=== PATIENT | female | born 1950 | race Caucasian/White ===

== ENCOUNTER 2017-06-16 19:17 | Inpatient (IN) | payer MEDICARE ==
[2017-06-16] MEDS ORDERED: Azithromycin 500 MG VIAL ONE (19:51)
[2017-06-16] MEDS ORDERED: methylPREDNISolone Sod Succ/PF 125 MG/2 ML VIAL ONE (19:51)
--- NOTE | 2017-06-16 20:09 | RAD ---
AP CHEST: Indication: Shortness of breath. FINDINGS: There are patchy air opacities within the left lower lobe. The right lung is clear. COPD change is pr esent. There are surgical clips seen within the left aspect of the mediastinum. No acute osseous abno rmality. IMPRESSION: 1. Airspace opacity within the left lower lobe. Recommend correlation for possible pneumonia. Two vie w chest radiograph may be helpful for further characterization. 2. COPD change. POS: ALEX
[2017-06-16 20:10] LABS: Hemoglobin 12.1 g/dL (12.0-16.0); Mean Corpuscular HGB CONC 31.3 g/dL (32.0-36.0); Mean Corpuscular Volume 79.9 fl (81.0-99.0); Mean Platelet Volume 7.9 fL (7.4-10.4); Platelet Count 256 thou/uL (130-400); RBC Distribution Width 14.9 % (11.5-14.5); Red Blood Cell (RBC) Count 4.83 mill/uL (4.20-5.40); White Blood Cell (WBC) Count 21.9 thou/uL (4.8-10.8)
[2017-06-16] MEDS ORDERED: Cefepime 1 GM, Admixture Fee 1 EACH in Sodium Chloride 0.9% 10 ML SLOW IVP SCH (20:15)
[2017-06-16 20:27] LABS: ALT (SGPT) 31 U/L (8-55); AST (SGOT) 30 U/L (5-34); Albumin 3.8 g/dL (3.4-4.8); Alkaline Phosphatase 115 U/L (40-150); Anion Gap 11 mmol/L (10-20); BUN (Urea Nitrogen) 18 mg/dL (9.8-20.1); Bilirubin, Total 0.5 mg/dL (0.2-1.2); CK (CPK) 433 U/L (29-168); Calc. Creatinine Clearance 0 mL/min (70-130); Calcium 9.4 mg/dL (7.8-10.44); Carbon Dioxide 34 mmol/L (23-31); Chloride 95 mmol/L (98-107); Estimated GFR-MDRD 77; Globulin 2.9 g/dL (2.4-3.5); Glucose 110 mg/dL (80-115); Magnesium 1.6 mg/dL (1.6-2.6); Potassium 4.2 mmol/L (3.5-5.1); Protein, Total 6.7 g/dL (6.0-8.3); Sodium 136 mmol/L (136-145)
[2017-06-16 20:29] LABS: Anisocytosis SLIGHT = 6-15 cells (100X) (0-5/hpf); Band 1 % (5-11); Hypochromia SLIGHT = 6-15 cells (100X) (0-5/hpf); Lymphocytes 4 % (21-51); MDiff Complete? YES; Monocytes 5 % (0-10); Neutrophil 88 % (42-75); PLT Morphology Comment Appears Adequate; Reactive Lymphocytes 2 % (0-10)
[2017-06-16 20:31] LABS: Troponin I 0.028 ng/mL (< 0.028)
[2017-06-16 20:35] LABS: CKMB 16.2 ng/mL (0-6.6)
[2017-06-16 20:35] LABS: Bilirubin Small (Negative); Blood, Urine Negative (Negative); Clarity CLEAR (Clear); Glucose, Urine (Dipstick) Negative (Negative); Leukocyte Negative (Negative); Nitrite Negative (Negative); Protein, Urine (Dipstick) 300 mg/dL (Neg-Trace); Specific Gravity, Urine 1.035 (1.002-1.036); pH, Urine 5.5 (5.0-9.0)
[2017-06-16 20:37] LABS: Bacteria/HPF None Seen HPF (None Seen); Hyaline Casts/LPF 7-10 HYALINE CAST LPF (0-3 Hyaline); Pathc Cast-AUWi Flag 2.03 (0-2.49); WBC/HPF 0-3 HPF (0-3)
[2017-06-16 20:47] LABS: RBC/HPF None Seen HPF (0-3); Renal Epithelial None Seen HPF (0-3); Transitional Epithelial NONE SEEN HPF (0-3)
[2017-06-16] MEDS ORDERED: Senokot 8.6 MG TAB PO PRN ×2 (22:40)
[2017-06-16] MEDS ORDERED: cloNIDine 0.1 MG TAB PO PRN (22:40)
[2017-06-16] MEDS ORDERED: Guaifenesin DM 100-10/5 ML UDCUP PO PRN (22:40)
[2017-06-16] MEDS ORDERED: Benzonatate 100 MG CAP PO PRN (22:40)
[2017-06-16] MEDS ORDERED: Ondansetron HCl/PF 4 MG/2 ML Vial IVP PRN ×2 (22:40)
[2017-06-16] MEDS ORDERED: Nitroglycerin 0.4 MG TAB (25 Tab Bottle) SL PRN (22:40)
[2017-06-16] MEDS ORDERED: Calcium Carbonate 500 MG ChewTAB PO PRN (22:40)
[2017-06-16] MEDS ORDERED: Acetaminophen 325 MG TAB PO PRN (22:40)
[2017-06-16] MEDS ORDERED: Mag-Al 1200 mg/1200 mg/30 ML UDCUP PO PRN (22:40)
[2017-06-16] MEDS ORDERED: hydrALAZINE 20 MG/ML VIAL SLOW IVP PRN (22:40)
[2017-06-16] MEDS ORDERED: Loratadine 10 MG TAB PO PRN (22:40)
[2017-06-16] MEDS ORDERED: Bisacodyl 5 MG TAB PO PRN ×2 (22:40)
[2017-06-16] MEDS ORDERED: traMADol HCl 50 MG TAB PO PRN (22:40)
[2017-06-16] MEDS ORDERED: Mometasone/Formoterol 120 PUFF INHALER INH SCH (23:15)
[2017-06-16 23:38] LABS: Troponin I 0.029 ng/mL (< 0.028)
--- NOTE | 2017-06-17 00:37 | HP ---
DATE OF ADMISSION: 06/16/2017 CHIEF COMPLAINT: Worsening shortness of breath, generalized weakness, cough, and malaise. HISTORY OF PRESENT ILLNESS: Ms. Madera is a pleasant 67-year-old female who is visiting her family from outside for [facility], who presented to the emergency room with the above-mentioned complai nts. History is mainly obtained by the patient herself who is a rather poor historian. She is kind of sleepy at this time and also not answering the questions beyond yes or no. Family is at bedside, but they do not have the full medical history for her either. According to Ms. Madera, she has been feeling fine when she drove here 2 days ago from [facility]. She has history of lung cancer and has finished her chemotherapy and radiation last year in August. She has her left upper lobe removed for this. She does report that she continues to follow up with O ncology in her town and has been getting regular checkups. She started to feel bad yesterday afternoon. Her family noticed that she was fatigued and tired and was sleeping most of the time. She has been having worsening cough. She is a lifetime smoker and co ntinues to smoke, but this cough is different from a chronic cough. She denies any fever or chills, but has poor appetite in general and worse so in the last day or so. She denies any chest pain, orth opnea, or PND. She denies any vomiting, but has been feeling nauseated. She denies any diarrhea. S he denies any dysuria, frequency, urgency, hematuria. She denies any other recent illnesses or sick contacts. Upon presentation to the emergency room, her oxygen saturation was 100% on 2 liters. Her initial wor kup included basic labs, which were rather unremarkable except for elevated creatine kinase at 433 wi th resultant elevation of CK-MB to 16.2. Troponin is normal at 0.028. Her BNP slightly elevated at 385. Her chest x-ray suggested left lower-lobe pneumonia. She has received IV antibiotics, namely a zithromycin, Rocephin, as well as cefepime in the emergency room along with Solu-Medrol. She is feel ing better now and is hemodynamically stable. She is currently being admitted to medical floor for p neumonia, possible sepsis, and COPD exacerbation. She does have elevated white blood cell count at 2 1,000 with left shift and bandemia. PAST MEDICAL HISTORY: The patient is not able to corroborate most of the history and I have gathered as from the ER notes. Atrial fibrillation, CHF, asthma, hypothyroidism, hypertension, lung cancer, status post left upper lobe resection and chemotherapy and radiation, COPD, and tobacco abuse. PAST SURGICAL HISTORY: 1. Left lung lobectomy. 2. History of left breast surgery. 3. Cardiac stenting, even though the patient denied history of heart disease. PSYCHIATRIC HISTORY: History of depression. SOCIAL HISTORY: She lives by herself and reports that she is independent with her ADLs and her IADLs . She drove herself to be with her family in [place] area. ALLERGIES: No known medication allergies. FAMILY HISTORY: She denies any family history of coronary artery disease, stroke, or cancers. CURRENT MEDICATIONS: 1. Advair. 2. Incruse Ellipta. 3. ProAir. 4. Citalopram. 5. Levothyroxine. 6. Metoprolol succinate. 7. Xarelto. 8. Albuterol. Dosages are not available at this time. REVIEW OF SYSTEMS: The following complete review of systems was negative, except for those mentioned in the history and physical: Constitutional: Weight loss or gain, ability to conduct usual activit ies. Skin: Rash, itching. Eyes: Double vision, pain. ENT/Mouth: Nose bleeding, neck stiffness, pain, tenderness. Cardiovascular: Palpitations, dyspnea on exertion, orthopnea. Respiratory: Shor tness of breath, wheezing, cough, hemoptysis, fever, or night sweats. Gastrointestinal: Poor appeti te, abdominal pain, heartburn, nausea, vomiting, constipation, or diarrhea. Genitourinary: Urgency, frequency, dysuria, nocturia. Musculoskeletal: Pain, swelling. Neurologic/Psychiatric: Anxiety, depression. Allergy/Immunologic: Skin rash, bleeding tendency. LABORATORY DATA: Her CBC shows WBCs at 21.9, 88% neutrophils, and 1% bands, otherwise unremarkable. Serum chemistry showed chloride 95, bicarbonate 34, creatine kinase 433, CK-MB 16.2, troponin 0.028. BNP 385. Urinalysis shows 300 protein, otherwise unremarkable. Chest x-ray by my review as per HP I with left lower-lobe pneumonia. A 12-lead EKG by my review shows normal sinus rhythm. PHYSICAL EXAMINATION: VITAL SIGNS: Upon presentation, blood pressure 137/84, pulse of 90, respirations 20, saturating 100% on 2 liters oxygen, temperature 98.0. GENERAL: She is somnolent, but easily woken up, but falls back asleep quickly. When woken up, she i s awake, alert, oriented x3. She appears thin and cachectic, but in no acute distress. HEENT: Mucous membrane is dry. No oropharyngeal exudate or erythema. Head is normocephalic, atraum atic. Pupils are equal, reactive to light and accommodation. Extraocular movement intact. NECK: Supple without any lymphadenopathy, JVD, or bruit. CHEST: Reveals diffuse wheezing and crackles at the bases. Chest expansion symmetrical. CARDIOVASCULAR: Rare and rhythm is regular without any murmur, rubs, or gallops. ABDOMEN: Soft, nontender, nondistended with positive bowel sounds. EXTREMITIES: Free of any cyanosis, clubbing, or edema. NEUROLOGIC: Nonfocal. SKIN: Free of any rashes or bruises. I feel warm and dry to touch. PSYCHIATRIC: Normal affect. IMPRESSION AND PLAN: 1. Sepsis, most likely secondary to pneumonia. Patient will be admitted to medical floor, as she is hemodynamically stable. We will continue with IV fluids cautiously given her history of congestive heart failure with unknown baseline. Also, continue IV antibiotics namely Levaquin and cefepime give n her history of lung cancer. We will also obtain blood cultures and follow the results. Her influe nza swab was done in the emergency room and is negative. 2. Dyspnea likely secondary to acute chronic obstructive pulmonary disease exacerbation as well as p neumonia. We will start her on nebulizers scheduled and p.r.n. Add Dulera b.i.d. as well for long-a cting inhaled steroids. Also, continue IV steroids as started in the emergency room and continue sup plemental oxygen. Her symptomatic and supportive care in the form of Mucinex: Incentive spirometry and p.r.n. cough medicines etc. If her symptoms are not improved within the next 24 hours or so: We will consider consultation with Pulmonary Medicine team. 3. Left lower-lobe pneumonia as #1. Continue IV antibiotics and gentle IV fluid hydration and follo w culture results. 4. Moderate protein-calorie malnutrition. We will start her on protein supplements at this time. A lso, consult dietitian. The patient most likely will benefit from home health, where she resides. U ramón, she is not local and we will defer this back to her primary care physician to arrange f or that. 5. Chronic obstructive pulmonary disease. At this time, we are treating her for acute exacerbation. We will be treating her with Dulera, Advair, and Incruse Ellipta will be continued in the outpatien t setting. 6. History of hypertension. Restart her metoprolol succinate when the dosages are confirmed. 7. History of atrial fibrillation. The patient is currently sinus rhythm. She seems to be taking X arelto, but I do not have the correct dosages. We will start this as soon as possible and use Loveno x at the deep venous thrombosis prophylactic dose until then. 8. History of depression. Continue citalopram once the dosages are confirmed. 9. Questionable history of coronary artery disease. I do not know if this is a true diagnosis or no t. The patient does not seem to be on any medication except metoprolol for this. 10. Hypothyroidism. Continue levothyroxine once the dosages are confirmed. 11. History of lung cancer, status post left upper lobe lobectomy, chemotherapy and radiation. The patient is encouraged to continue to follow up with her Pulmonary team and Oncology team where she li ves. 12. Code status: FULL CODE. Discussed with the patient in detail and entered order in [facility]. 13. Deep venous thrombosis and gastrointestinal prophylaxis. 14. Add p.r.n. medication orders. DISPOSITION: Ms. Madera is currently being admitted to the hospital for sepsis, pneumonia, and acute COPD exacerbation. Estimated length of stay is at least 2-3 midnight. Further management will depen d upon her clinical course.
[2017-06-17 00:43] VITALS: BMI 15.7
[2017-06-17] MEDS: Sodium Chloride 0.9% 1,000 ML IV SCH ×2 (01:33→12:22)
[2017-06-17 02:33] LABS: Troponin I 0.033 ng/mL (< 0.028)
[2017-06-17 06:06] LABS: #Lymphocytes 0.6 thou/uL (1.20-3.40); #Monocytes 0.1 thou/uL (0.11-0.59); #Neutrophils 16.7 thou/uL (1.40-6.50); %Eosinophils 0.1 % (0.0-10.0); %Lymphocytes 3.5 % (21.0-51.0); %Monocytes 0.6 % (0.0-10.0); %Neutrophils 95.8 % (42.0-75.0); Hemoglobin 12.2 g/dL (12.0-16.0); Mean Corpuscular HGB CONC 30.8 g/dL (32.0-36.0); Mean Corpuscular Hemoglobin 24.4 pg (27.0-31.0); Mean Corpuscular Volume 79.5 fl (81.0-99.0); Mean Platelet Volume 8.3 fL (7.4-10.4); Platelet Count 243 thou/uL (130-400); RBC Distribution Width 15.2 % (11.5-14.5); Red Blood Cell (RBC) Count 4.97 mill/uL (4.20-5.40); White Blood Cell (WBC) Count 17.4 thou/uL (4.8-10.8)
[2017-06-17] MEDS: Mometasone/Formoterol 120 PUFF INHALER INH SCH ×2 (06:20→20:15)
[2017-06-17 06:30] LABS: Anion Gap 11 mmol/L (10-20); BUN (Urea Nitrogen) 19 mg/dL (9.8-20.1); Calc. Creatinine Clearance 52 mL/min (70-130); Calcium 9.2 mg/dL (7.8-10.44); Carbon Dioxide 35 mmol/L (23-31); Chloride 96 mmol/L (98-107); Estimated GFR-MDRD 79; Glucose 156 mg/dL (80-115); Potassium 4.5 mmol/L (3.5-5.1); Sodium 137 mmol/L (136-145)
[2017-06-17] MEDS ORDERED: Arformoterol 15 MCG/2 ML NEB NEB SCH (06:30)
[2017-06-17] MEDS: Famotidine 20 MG TAB PO SCH ×2 (08:26→20:15)
[2017-06-17] MEDS: Enoxaparin Sodium 40 MG/0.4 ML SYRINGE SC SCH (08:26)
[2017-06-17] MEDS ORDERED: Prevnar 13-Val Conj/PF 0.5 ML SYRINGE IM ONE (09:00)
[2017-06-17] MEDS: Cefepime 2 GM in Syringe 12.5 ML IVPB SCH ×2 (10:10→20:15)
--- NOTE | 2017-06-17 13:16 | PDOC.PN ---
- Subjective Encounter Start Date: 06/17/17 Encounter Start Time: 08:00 Pt seen for followup re: pneumonia. Denies chest pain. Has cough, small amount of sputum. No fevers or chills. - Objective Resuscitation Status: Resuscitation Status FULL:Full Resuscitation MAR Reviewed: Yes Vital Signs & Weight: Vital Signs (12 hours) Temp Pulse Resp BP Pulse Ox 06/17/17 11:36 98 14 98 06/17/17 08:00 97.5 F L 99 20 146/82 H 97 06/17/17 06:20 92 14 97 06/17/17 06:18 92 14 97 06/17/17 04:15 98.2 F 86 22 H 142/76 H 98 Weight Admit Weight 97 lb 14.164 oz Weight 97 lb 14.164 oz I&O: 06/16/17 06/17/17 06/18/17 06:59 06:59 06:59 Intake Total 480 Balance 480 Result Diagrams: 06/17/17 01:49 06/17/17 01:49 Phys Exam - Physical Examination Constitutional: NAD HEENT: PERRLA, moist MMs, sclera anicteric, oral pharynx no lesions Neck: no nodes, no JVD, supple, full ROM Respiratory: no rales, no rhonchi, wheezing present Cardiovascular: RRR, no rub Gastrointestinal: soft, non-tender, no distention, positive bowel sounds Musculoskeletal: no edema, pulses present Neurological: moves all 4 limbs Psychiatric: normal affect Skin: no rash, normal turgor, cap refill <2 seconds Dx/Plan (1) Pneumonia Code(s): J18.9 - PNEUMONIA, UNSPECIFIED ORGANISM Status: Acute Comment: continue antibiotics as below (2) COPD exacerbation Code(s): J44.1 - CHRONIC OBSTRUCTIVE PULMONARY DISEASE W (ACUTE) EXACERBATION Status: Acute Comment: continue oxygen, steroids and bronchodilators (3) CHF (congestive heart failure) Code(s): I50.9 - HEART FAILURE, UNSPECIFIED Status: Acute Qualifiers: Heart failure chronicity: acute on chronic Comment: administer IV furosemide; check 2D echo. (4) Elevated troponin I level Code(s): R74.8 - ABNORMAL LEVELS OF OTHER SERUM ENZYMES Status: Acute Comment: Recheck trop level. No chest pain, ? trop elevation due to COPD exacerbation/pneumonia. Check 2D echo to r/o regional wall motion abnormalities. (5) Hypothyroidism Code(s): E03.9 - HYPOTHYROIDISM, UNSPECIFIED Status: Chronic Comment: continue synthroid (6) HTN (hypertension) Code(s): I10 - ESSENTIAL (PRIMARY) HYPERTENSION Status: Chronic Comment: Monitor vital signs, titrate antihypertensives as needed (7) Moderate protein-calorie malnutrition Code(s): E44.0 - MODERATE PROTEIN-CALORIE MALNUTRITION Status: Chronic (8) Tobacco abuse Code(s): Z72.0 - TOBACCO USE Status: Chronic Comment: Counseled re: tobacco cessation, start nicotine replacement therapy - Plan plan discussed w/ family * . Discussed with son over phone, updated him. Review of Systems - Review of Systems Constitutional: other. negative: fever, chills, sweats, weakness, malaise Respiratory: Cough, Sputum, Wheezing. negative: Dry, Shortness of Breath, Hemoptysis, SOB with Excertion, Pleuritic Pain Cardiovascular: negative: chest pain, palpitations, orthopnea, paroxysmal nocturnal dyspnea, edema, light headedness Gastrointestinal: negative: Nausea, Vomiting, Abdominal Pain, Diarrhea, Constipation, Melena, Hematochezia Genitourinary: Other. negative: Dysuria, Frequency, Incontinence, Hematuria, Retention - Medications/Allergies Allergies/Adverse Reactions: Allergies Allergy/AdvReac Type Severity Reaction Status Date / Time No Known Allergies Allergy Unverified 06/16/17 20:00 Medications: Current Medications Acetaminophen (Tylenol) 650 mg PO Q4H PRN PRN Reason: Headache/Fever or Pain Al Hydroxide/Mg Hydroxide (Maalox) 30 ml PO Q6H PRN PRN Reason: Heartburn or Indigestion Albuterol/Ipratropium (Duoneb) 3 ml NEB Q4H PRN PRN Reason: SOB &/or Wheezing Albuterol/Ipratropium (Duoneb) 3 ml NEB [id number] PATRICK Last Admin: 06/17/17 11:36 Dose: 3 ml Benzonatate (Tessalon) 100 mg PO Q4H PRN PRN Reason: Cough Bisacodyl (Dulcolax) 10 mg PO DAILYPRN PRN PRN Reason: Constipation Calcium Carbonate (Tums) 1,000 mg PO Q4H PRN PRN Reason: Heartburn or Indigestion Clonidine (Catapres) 0.1 mg PO Q4H PRN PRN Reason: Systolic BP > 160 Enoxaparin Sodium (Lovenox) 40 mg SC 0900 [facility] Last Admin: 06/17/17 08:26 Dose: 40 mg Famotidine (Pepcid) 20 mg PO BID [facility] Last Admin: 06/17/17 08:26 Dose: 20 mg Guaifenesin/Dextromethorphan (Robitussin Dm) 15 ml PO Q4H PRN PRN Reason: Cough Hydralazine HCl (Apresoline) 10 mg SLOW IVP Q4H PRN PRN Reason: Systolic BP > 170 Cefepime HCl 2 gm/ Syringe 12.5 mls @ 150 mls/hr IVPB Q12HR [facility] Last Admin: 06/17/17 10:10 Dose: 12.5 mls Levofloxacin 750 mg/ Device 150 mls @ 100 mls/hr IVPB 2359 [facility] Last Admin: 06/17/17 01:31 Dose: 150 mls Sodium Chloride (Normal Saline 0.9%) 1,000 mls @ 75 mls/hr IV [id number] [facility] Last Admin: 06/17/17 12:22 Dose: 1,000 mls Loratadine (Claritin) 10 mg PO DAILYPRN PRN PRN Reason: Sinus Symptoms Lorazepam (Ativan) 1 mg PO Q4H PRN PRN Reason: Anxiety/Agitation Methylprednisolone Sodium Succinate (Solu-Medrol) 40 mg IVP Q6HR [facility] Last Admin: 06/17/17 11:28 Dose: 40 mg Mometasone Furoate/Formoterol Fumar (Dulera 200 Mcg/5 Mcg Inhaler) 2 puff INH BID-RT [facility] Last Admin: 06/17/17 06:20 Dose: 2 puff Nitroglycerin (Nitrostat) 0.4 mg SL Q5MIN PRN PRN Reason: Chest Pain Ondansetron HCl (Zofran) 4 mg IVP Q6H PRN PRN Reason: Nausea/Vomiting Senna (Senokot) 2 tab PO HSPRN PRN PRN Reason: Constipation Temazepam (Restoril) 15 mg PO HSPRN PRN PRN Reason: Insomnia Tramadol HCl (Ultram) 50 mg PO Q4H PRN PRN Reason: Moderate Pain (4-6)
[2017-06-17] MEDS ORDERED: Furosemide 40 MG/4 ML VIAL SLOW IVP SCH (13:45)
[2017-06-17 14:49] LABS: Troponin I 0.019 ng/mL (< 0.028)
[2017-06-17 14:51] LABS: CKMB 13.8 ng/mL (0-6.6)
[2017-06-17] MEDS: Nicotine 21 MG PATCH TD SCH (15:39)
[2017-06-17 19:00] LABS: Troponin I 0.021 ng/mL (< 0.028)
[2017-06-17 19:03] LABS: CKMB 19.3 ng/mL (0-6.6)
[2017-06-18] MEDS: Temazepam 15 MG CAP PO PRN (00:40)
[2017-06-18] MEDS: Mometasone/Formoterol 120 PUFF INHALER INH SCH ×2 (06:30→20:01)
[2017-06-18] MEDS: Enoxaparin Sodium 40 MG/0.4 ML SYRINGE SC SCH (07:49)
[2017-06-18] MEDS: Cefepime 2 GM in Syringe 12.5 ML IVPB SCH ×2 (08:15→20:04)
[2017-06-18] MEDS: Famotidine 20 MG TAB PO SCH ×2 (08:17→20:00)
[2017-06-18] MEDS ORDERED: Nicotine 21 MG PATCH TD SCH (09:00)
[2017-06-18 09:58] LABS: #Lymphocytes 0.3 thou/uL (1.20-3.40); #Monocytes 0.3 thou/uL (0.11-0.59); #Neutrophils 16.6 thou/uL (1.40-6.50); %Lymphocytes 1.8 % (21.0-51.0); %Monocytes 1.6 % (0.0-10.0); %Neutrophils 96.6 % (42.0-75.0); Mean Corpuscular HGB CONC 30.2 g/dL (32.0-36.0); Mean Corpuscular Hemoglobin 24.8 pg (27.0-31.0); Mean Corpuscular Volume 81.9 fl (81.0-99.0); Mean Platelet Volume 8.3 fL (7.4-10.4); Platelet Count 244 thou/uL (130-400); RBC Distribution Width 15.3 % (11.5-14.5); Red Blood Cell (RBC) Count 4.86 mill/uL (4.20-5.40); White Blood Cell (WBC) Count 17.2 thou/uL (4.8-10.8)
[2017-06-18 10:13] LABS: Anion Gap 12 mmol/L (10-20); BUN (Urea Nitrogen) 35 mg/dL (9.8-20.1); Calc. Creatinine Clearance 42 mL/min (70-130); Calcium 9.5 mg/dL (7.8-10.44); Carbon Dioxide 31 mmol/L (23-31); Chloride 95 mmol/L (98-107); Estimated GFR-MDRD 61; Glucose 165 mg/dL (80-115); Potassium 4.1 mmol/L (3.5-5.1); Sodium 134 mmol/L (136-145)
[2017-06-18] MEDS: Lorazepam 1 MG TAB PO PRN ×2 (14:03→20:00)
[2017-06-18] MEDS: Nicotine 21 MG PATCH TD SCH (14:04)
--- NOTE | 2017-06-18 14:07 | PDOC.PN ---
- Subjective Encounter Start Date: 06/18/17 Encounter Start Time: 09:00 Pt seen for followup re: pneumonia. Denies chest pain, feels better today. Cough+, sputum+. No fevers or chills. - Objective Resuscitation Status: Resuscitation Status FULL:Full Resuscitation MAR Reviewed: Yes Vital Signs & Weight: Vital Signs (12 hours) Temp Pulse Resp BP Pulse Ox 06/18/17 13:27 87 16 97 06/18/17 08:00 98.2 F 104 H 14 121/74 95 06/18/17 06:30 99 06/18/17 06:29 110 H 15 99 06/18/17 04:00 97.5 F L 102 H 20 118/65 95 Weight Admit Weight 97 lb 14.164 oz Weight 97 lb 14.164 oz I&O: 06/17/17 06/18/17 06/19/17 06:59 06:59 06:59 Intake Total 3750 Balance 3750 Result Diagrams: 06/18/17 09:46 06/18/17 09:46 Phys Exam - Physical Examination Constitutional: NAD HEENT: PERRLA, moist MMs, sclera anicteric, oral pharynx no lesions Neck: no nodes, no JVD, supple, full ROM Respiratory: no wheezing, no rales, no rhonchi, clear to auscultation bilateral Cardiovascular: RRR, no rub Gastrointestinal: soft, non-tender, positive bowel sounds Neurological: moves all 4 limbs Psychiatric: normal affect, A&O x 3 Skin: no rash Dx/Plan (1) Pneumonia Code(s): J18.9 - PNEUMONIA, UNSPECIFIED ORGANISM Status: Acute Comment: continue cefepime and vancomycin. Try to wean pt off of supplemental oxygen. Pt still has leucocytosis (? due to steroids), although she is better today. Transition to oral antibiotics once oxygenation improves. (2) COPD exacerbation Code(s): J44.1 - CHRONIC OBSTRUCTIVE PULMONARY DISEASE W (ACUTE) EXACERBATION Status: Acute Comment: Receiving oxygen PRN, steroids and bronchodilators (3) CHF (congestive heart failure) Code(s): I50.9 - HEART FAILURE, UNSPECIFIED Status: Acute Qualifiers: Heart failure chronicity: acute on chronic Comment: continue IV furosemide; 2D echo report pending. (4) Hypothyroidism Code(s): E03.9 - HYPOTHYROIDISM, UNSPECIFIED Status: Chronic Comment: continue synthroid (5) HTN (hypertension) Code(s): I10 - ESSENTIAL (PRIMARY) HYPERTENSION Status: Chronic Comment: titrate antihypertensives as needed (6) Moderate protein-calorie malnutrition Code(s): E44.0 - MODERATE PROTEIN-CALORIE MALNUTRITION Status: Chronic Comment: appreciate dietitian input (7) Tobacco abuse Code(s): Z72.0 - TOBACCO USE Status: Chronic Comment: on nicotine replacement therapy (8) Elevated troponin I level Code(s): R74.8 - ABNORMAL LEVELS OF OTHER SERUM ENZYMES Status: Resolved Comment: Troponin level normalized, pt never had chest pain. - Plan * . Awaiting records from PCP Review of Systems - Review of Systems Constitutional: negative: fever, chills, sweats, weakness, malaise Respiratory: Cough, SOB with Excertion, Sputum. negative: Shortness of Breath, Hemoptysis, Pleuritic Pain, Wheezing Cardiovascular: negative: chest pain, palpitations, orthopnea, paroxysmal nocturnal dyspnea, edema, light headedness Gastrointestinal: negative: Nausea, Vomiting, Abdominal Pain, Diarrhea, Constipation, Melena, Hematochezia Genitourinary: negative: Dysuria, Frequency, Incontinence, Hematuria, Retention - Medications/Allergies Allergies/Adverse Reactions: Allergies Allergy/AdvReac Type Severity Reaction Status Date / Time No Known Allergies Allergy Unverified 06/16/17 20:00 Medications: Current Medications Acetaminophen (Tylenol) 650 mg PO Q4H PRN PRN Reason: Headache/Fever or Pain Last Admin: 06/18/17 05:02 Dose: 650 mg Al Hydroxide/Mg Hydroxide (Maalox) 30 ml PO Q6H PRN PRN Reason: Heartburn or Indigestion Albuterol/Ipratropium (Duoneb) 3 ml NEB Q4H PRN PRN Reason: SOB &/or Wheezing Albuterol/Ipratropium (Duoneb) 3 ml NEB [id number] PATRICK Last Admin: 06/18/17 13:27 Dose: 3 ml Atorvastatin Calcium (Lipitor) 20 mg PO HS PATRICK Benzonatate (Tessalon) 100 mg PO Q4H PRN PRN Reason: Cough Bisacodyl (Dulcolax) 10 mg PO DAILYPRN PRN PRN Reason: Constipation Calcium Carbonate (Tums) 1,000 mg PO Q4H PRN PRN Reason: Heartburn or Indigestion Citalopram Hydrobromide (Celexa) 20 mg PO DAILY [facility] Clonidine (Catapres) 0.1 mg PO Q4H PRN PRN Reason: Systolic BP > 160 Famotidine (Pepcid) 20 mg PO BID [facility] Last Admin: 06/18/17 08:17 Dose: 20 mg Guaifenesin/Dextromethorphan (Robitussin Dm) 15 ml PO Q4H PRN PRN Reason: Cough Hydralazine HCl (Apresoline) 10 mg SLOW IVP Q4H PRN PRN Reason: Systolic BP > 170 Cefepime HCl 2 gm/ Syringe 12.5 mls @ 150 mls/hr IVPB Q12HR [facility] Last Admin: 06/18/17 08:15 Dose: 12.5 mls Levofloxacin 750 mg/ Device 150 mls @ 100 mls/hr IVPB 2359 [facility] Last Admin: 06/18/17 00:38 Dose: 150 mls Levothyroxine Sodium (Synthroid) 50 mcg PO QAM [facility] Loratadine (Claritin) 10 mg PO DAILYPRN PRN PRN Reason: Sinus Symptoms Lorazepam (Ativan) 1 mg PO Q4H PRN PRN Reason: Anxiety/Agitation Last Admin: 06/18/17 14:03 Dose: 1 mg Methylprednisolone Sodium Succinate (Solu-Medrol) 40 mg IVP Q6HR [facility] Last Admin: 06/18/17 11:47 Dose: 40 mg Metoprolol Succinate (Toprol Xl) 37.5 mg PO DAILY [facility] Mometasone Furoate/Formoterol Fumar (Dulera 200 Mcg/5 Mcg Inhaler) 2 puff INH BID-RT [facility] Nicotine (Nicoderm Patch) 21 mg TD Q24HR [facility] Last Admin: 06/18/17 14:04 Dose: 21 mg Nitroglycerin (Nitrostat) 0.4 mg SL Q5MIN PRN PRN Reason: Chest Pain Rivaroxaban (Xarelto) 20 mg PO QPM [facility] Senna (Senokot) 2 tab PO HSPRN PRN PRN Reason: Constipation Sodium Chloride (Flush - Normal Saline) 10 ml IVF PRN PRN PRN Reason: Saline Flush Sodium Chloride (Flush - Normal Saline) 10 ml IVF BID [facility] Last Admin: 06/18/17 08:18 Dose: 10 ml Temazepam (Restoril) 15 mg PO HSPRN PRN PRN Reason: Insomnia Last Admin: 06/18/17 00:40 Dose: 15 mg Tramadol HCl (Ultram) 50 mg PO Q4H PRN PRN Reason: Moderate Pain (4-6)
[2017-06-18] MEDS ORDERED: Furosemide 40 MG/4 ML VIAL SLOW IVP SCH (15:00)
[2017-06-18] MEDS: Rivaroxaban 10 MG TAB PO SCH (20:00)
[2017-06-18] MEDS: Atorvastatin Calcium 20 MG TAB PO SCH (20:00)
[2017-06-18] MEDS ORDERED: Non-Formulary Item 1 EACH (Rivaroxaban [Xarelto] 20 MG) PO SCH ×2 (21:00)
[2017-06-18] MEDS ORDERED: Non-Formulary Item 1 EACH (Fluticasone/Salmeterol [Advair Diskus 500/50] 1 INH) INH SCH ×2 (21:00)
[2017-06-19] MEDS: Temazepam 15 MG CAP PO PRN (00:07)
[2017-06-19] MEDS: Mometasone/Formoterol 120 PUFF INHALER INH SCH ×3 (06:33→19:57)
[2017-06-19] MEDS: Furosemide 40 MG/4 ML VIAL SLOW IVP SCH (08:00)
[2017-06-19] MEDS: Levothyroxine Sodium 50 MCG TAB PO SCH (08:01)
[2017-06-19] MEDS: Famotidine 20 MG TAB PO SCH ×2 (08:01→19:17)
[2017-06-19] MEDS: Citalopram 20 MG TAB PO SCH (08:01)
[2017-06-19] MEDS: Cefepime 2 GM in Syringe 12.5 ML IVPB SCH ×2 (08:22→19:18)
[2017-06-19] MEDS ORDERED: Atorvastatin Calcium 10 MG TAB PO SCH (09:00)
[2017-06-19] MEDS ORDERED: UMECLIDINIUM BROMIDE 62.5 MG INH SCH ×2 (09:00)
[2017-06-19] MEDS: Nicotine 21 MG PATCH TD SCH (16:05)
[2017-06-19] MEDS: Rivaroxaban 10 MG TAB PO SCH (19:17)
[2017-06-19] MEDS: Lorazepam 1 MG TAB PO PRN (19:17)
[2017-06-19] MEDS: Atorvastatin Calcium 20 MG TAB PO SCH (19:18)
--- NOTE | 2017-06-19 23:35 | PDOC.PN ---
- Subjective Encounter Start Date: 06/18/17 Encounter Start Time: 17:00 Subjective: nsg notes rev, gigi ovn, no new c/o - Objective Resuscitation Status: Resuscitation Status FULL:Full Resuscitation Vital Signs & Weight: Vital Signs (12 hours) Temp Pulse Resp BP Pulse Ox 06/19/17 20:24 97.3 F L 104 H 16 136/79 92 L 06/19/17 19:50 97.6 F 106 H 20 96 06/19/17 19:35 106 H 16 06/19/17 13:04 95 16 95 Weight Admit Weight 97 lb 14.164 oz Weight 97 lb 14.164 oz I&O: 06/18/17 06/19/17 06/20/17 06:59 06:59 06:59 Intake Total 3750 1420 1200 Balance 3750 1420 1200 Result Diagrams: 06/18/17 09:46 06/18/17 09:46 Phys Exam - Physical Examination Constitutional: NAD HEENT: PERRLA, moist MMs, sclera anicteric Respiratory: no wheezing, no rales, no rhonchi Cardiovascular: RRR, no significant murmur, no rub Gastrointestinal: soft, positive bowel sounds Dx/Plan - Plan * (1) Pneumonia symptomatically improved continue weaning O2, check ambulatory pulse ox (2) COPD exacerbation nebs, steroids, empiric abx as above leukocytosis and hyperglycemia likely medication induced (3) CHF (congestive heart failure) transition IV lasix to oral improved respiratory status as above continued hemodynamic stability (4) Hypothyroidism stable, continue home levothyroxine (5) HTN (hypertension) stable (6) Moderate protein-calorie malnutrition stable (7) Tobacco abuse on nicotine replacement therapy (8) Elevated troponin I level Troponin level normalized, pt never had chest pain. elevation likely 2/2 respiratory issues and CHF as noted above in #1-3 Review of Systems - Medications/Allergies Allergies/Adverse Reactions: Allergies Allergy/AdvReac Type Severity Reaction Status Date / Time No Known Allergies Allergy Unverified 06/16/17 20:00
[2017-06-20] MEDS: Temazepam 15 MG CAP PO PRN (00:31)
[2017-06-20] MEDS: Mometasone/Formoterol 120 PUFF INHALER INH SCH ×2 (07:29→19:15)
[2017-06-20] MEDS: Furosemide 40 MG/4 ML VIAL SLOW IVP SCH (07:33)
[2017-06-20] MEDS: Famotidine 20 MG TAB PO SCH (07:33)
[2017-06-20] MEDS: Cefepime 2 GM in Syringe 12.5 ML IVPB SCH (07:33)
[2017-06-20] MEDS: Citalopram 20 MG TAB PO SCH (07:34)
[2017-06-20] MEDS: Levothyroxine Sodium 50 MCG TAB PO SCH (07:34)
[2017-06-20] MEDS ORDERED: predniSONE 20 MG TAB PO SCH ×2 (08:30)
[2017-06-20 09:15] VITALS: BP 165/85; TEMP 97.7
[2017-06-20] MEDS: Lorazepam 1 MG TAB PO PRN (14:36)
--- NOTE | 2017-06-20 16:13 | PQF ---
CLINICAL DOCUMENTATION IMPROVEMENT CLARIFICATION FORM: ICD-10 Updated PLEASE DO AN ADDENDUM TO THE PROGRESS NOTE WITH ANY DOCUMENTATION UPDATES OR ADDITIONS AND CARRY THROUGH TO DC SUMMARY. THANK YOU. DATE: 06/20/17 ATTN: Dr. Vidales Please exercise your independent, professional judgment in responding to the clarification form. Clinical indicators are provided on the bottom of this form for your review Please check appropriate box(s) to clarify if the following diagnosis has been ruled in or ruled out: _ SEPSIS, MOST LIKELY SECONDARY TO PNEUMONIA (H&P). [ x ] Ruled in diagnosis [ ] Continue to treat [ x ] Resolved [ ] Ruled out diagnosis [ ] Cannot rule out diagnosis [ ] Other diagnosis [ ] Unable to determine In addition, please specify: Present on Admission (POA): [ x ] Yes [ ] No [ ] Unable to determine For continuity of documentation, please document condition throughout progress notes and discharge summary. Thank You. CLINICAL INDICATORS - SIGNS / SYMPTOMS / LABS ER RECORD: PULSE 90-95, RESP. 20 H&P: SHE IS CURRENTLY BEING ADMITTED TO MEDICAL FLOOR FOR PNEUMONIA, POSSIBLE SEPSIS, AND COPD EXACERBATION. ELEVATED WHITE BLOOD CELL CT AT 21,000 W/ L SHIFT BANDEMIA. SEPSIS, MOST LIKELY SECONDARY TO PNEUMONIA. RISKS: H&P: HX CHF, HYPERTENSION, LUNG CANCER, S/P MARNIE RESECTION. COPD EXACERBATION. MODERATE PROTEIN-CALORIE MALNUTRITION TREATMENTS: CPOE 06/16: LEVAQUIN 750MG IV. DC'D 06/20/17 CPOE 4/5: LEVAQUIN 500MG PO Thank you, Eneida (This form is maintained as a part of the permanent medical record) 2014 [employer]. All Rights Reserved Eneida Abbasi RN, BSN [email or web address] Office: [phone] [facility]
[2017-06-20] MEDS: Nicotine 21 MG PATCH TD SCH (16:36)
[2017-06-21] MEDS ORDERED: predniSONE 20 MG TAB PO SCH (08:00)
--- NOTE | 2017-06-22 20:24 | EKG ---
Test Reason : Blood Pressure : / mmHG Vent. Rate : 089 BPM Atrial Rate : 089 BPM P-R Int : 152 ms QRS Dur : 088 ms QT Int : 382 ms P-R-T Axes : 050 -01 069 degrees QTc Int : 464 ms Sinus rhythm with marked sinus arrhythmia Nonspecific T wave abnormality Abnormal ECG Confirmed by FANG CLAYTON ([id number]), mapping editor SAMANTHA KULKARNI ([id number]) on 06/22/2017 8:23:34 PM Referred By: Confirmed By:FANG CLAYTON
== END 2017-06-20 19:52 | disposition home or self-care (01) | DRG 190 ==
LOC: ERS 19:17 → T4-A 22:34
PROVIDERS: ADMIT Internal Medicine; ATTEND Internal Medicine
PROC: 3E0234Z Introduction of Serum, Toxoid and Vaccine into Muscle, Percutaneous Approach (ICD-10-PCS; principal; 2017-06-17)
DX: J44.0 Chronic obstructive pulmonary disease with (acute) lower respiratory infection (principal); J18.9 Pneumonia, unspecified organism; R65.20 Severe sepsis without septic shock; E44.0 Moderate protein-calorie malnutrition; I11.0 Hypertensive heart disease with heart failure; I48.91 Unspecified atrial fibrillation; I50.9 Heart failure, unspecified; Z68.1 Body mass index [BMI] 19.9 or less, adult; F17.210 Nicotine dependence, cigarettes, uncomplicated; E03.9 Hypothyroidism, unspecified; J44.1 Chronic obstructive pulmonary disease with (acute) exacerbation; Z66 Do not resuscitate; Z85.118 Personal history of other malignant neoplasm of bronchus and lung; Z92.21 Personal history of antineoplastic chemotherapy; Z92.3 Personal history of irradiation; F32.9 Major depressive disorder, single episode, unspecified; Z23 Encounter for immunization
CPT/HCPCS: 36415; 71045; 80048; 80053; 81003; 81015; 82550; 82553; 83735; 83880; 84484; 85025; 87040; 90471; 90670; 93005; 93306; 93798; 94640; 96365; 96375; A4216; G0009; J0456; J0692; J0696; J1650; J1940; J1956; J2920; J2930; J7620